=== PATIENT | male | born 1980 | race Hispanic/Latino ===

== ENCOUNTER 2022-01-12 13:03 | Emergency (ER) | payer SELFPAY ==
[2022-01-12 14:16] LABS: #Basophils 0.1 10x3/uL (0.0-0.2); #Monocytes 0.3 10x3/uL (0.0-1.1); #Neutrophils 2.5 10x3/uL (1.5-8.4); %Basophils 1.3 % (0.0-2.0); %Eosinophils 0.3 % (0.0-6.0); %Lymphocytes 23.8 % (18.0-47.0); %Monocytes 8.5 % (0.0-10.0); %Neutrophils 65.8 % (40.0-75.0); Hemoglobin 14.4 g/dL (13.5-17.5); Mean Corpuscular HGB CONC 35.4 g/dL (32.0-36.0); Mean Corpuscular Hemoglobin 32.3 pg (27.0-33.0); Mean Corpuscular Volume 91.3 fl (81.2-95.1); Mean Platelet Volume 10.3 fl (7.4-10.4); Platelet Count 135 10x3/uL (150-450); RBC Distribution Width 13.1 % (11.5-14.5); Red Blood Cell (RBC) Count 4.46 10x6/uL (4.32-5.72); White Blood Cell (WBC) Count 3.9 10x3/uL (3.5-10.5)
[2022-01-12 14:31] LABS: ALT (SGPT) 27 U/L (8-55); AST (SGOT) 60 U/L (5-34); Acetaminophen Less than 10.0 mcg/mL (10.0-30.0); Albumin 4.6 g/dL (3.5-5.0); Alcohol 261 mg/dL (Less than 10); Alkaline Phosphatase 68 U/L (40-110); Anion Gap 21 mmol/L (10-20); BUN (Urea Nitrogen) 4 mg/dL (8.9-20.6); Bilirubin, Total 1.1 mg/dL (0.2-1.2); Calc. Creatinine Clearance 0 mL/min (70-130); Calcium 9.1 mg/dL (7.8-10.44); Carbon Dioxide 27 mmol/L (22-29); Chloride 96 mmol/L (98-107); Globulin 3.7 g/dL (2.4-3.5); Glucose 97 mg/dL (70-105); Lipase 82 U/L (8-78); Potassium 4.1 mmol/L (3.5-5.1); Protein, Total 8.3 g/dL (6.0-8.3); Salicylate Less than 8.0 mg/dL (15.0-30.0); Sodium 140 mmol/L (136-145)
[2022-01-12] MEDS ORDERED: Ibuprofen 200 MG TAB ONE (19:12)
== END 2022-01-12 20:25 | disposition home or self-care (01) ==
LOC: CSHERS 13:03
DX: F10.129 Alcohol abuse with intoxication, unspecified (principal); I25.2 Old myocardial infarction; Y90.6 Blood alcohol level of 120-199 mg/100 ml
CPT/HCPCS: 36415; 71045; 80053; 80307; 83690; 84484; 85025; 93005